=== PATIENT | female | born 1955 | race Caucasian/White ===

== ENCOUNTER → 2016-06-22 | Outpatient (CLI) | payer OTHER ==
--- NOTE | 2016-06-22 17:59 | DX ---
Bilateral Hips, Three Views History: Bilateral hip pain. Findings: Moderate to severe bilateral facet arthropathy at L5-S1. No significant degenerative stacy ges of the sacroiliac joints. Pelvic bones demonstrate no evidence of acute fracture or destructive osseous lesions. Bilateral hips demonstrate no significant joint space narrowing, bone remodeling, o r acetabular sclerosis. No evidence of hip fracture or dislocation. Impressions 1. L5-S1 bilateral facet arthropathy. 2. No evidence of fracture or significant degenerative changes bilateral hips. 3. No destructive osseous lesions.
--- NOTE | 2016-06-22 18:07 | DX ---
Left Foot 3 Views History: Pain in the great toe. Comparison: None available. Findings: No fractures identified. Alignment is normal. Bone mineralization is normal. There is no si gnificant degenerative change at the first tarsal phalangeal joint. Mild osteoarthritis is present in the distal interphalangeal joint of the second toe. Prominent calcaneal enthesophytes are present a t the insertions of the plantar aponeurosis and Achilles tendon. Impression: 1. No definite etiology for the patient's pain 2. Calcaneal spurring 3. Mild osteoarthritis of the second toe.
--- NOTE | 2016-06-22 18:24 | DX ---
Right hand, 3 views History: Thumb pain. Comparison: None available. Findings: No fracture is identified. Alignment is normal. Moderate osteoarthritis is present at the f irst metacarpophalangeal joint with mild osteoarthritis at the first carpometacarpal joint. No fractu re is identified. No soft tissue calcifications are present. 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
== END ==
LOC: CIMAGING 13:31
PROVIDERS: ATTEND Family Medicine
DX: M19.041 Primary osteoarthritis, right hand (principal); M79.675 Pain in left toe(s); M77.32 Calcaneal spur, left foot; M19.072 Primary osteoarthritis, left ankle and foot; M25.551 Pain in right hip; M25.552 Pain in left hip; M46.97 Unspecified inflammatory spondylopathy, lumbosacral region
CPT/HCPCS: 73130-PO; 73521-PO; 73630-PO

== ENCOUNTER → 2017-02-10 | Outpatient (CLI) | payer OTHER | LOC: CIMAGING 11:14 | PROVIDERS: ATTEND Family Medicine | DX: M54.5 Low back pain (principal); M25.559 Pain in unspecified hip; M12.9 Arthropathy, unspecified | CPT/HCPCS: 72100-PO ==